=== PATIENT | female | born 1980 | race Caucasian/White ===

== ENCOUNTER 2018-09-02 13:26 | Observation (INO) | payer BC ==
[~2018-09-02 13:26] MED LIST: IOPAMIDOL (ISOVUE 370) 100 ML BTL IV ONE
--- NOTE | 2018-09-02 13:52 | EDPHY ---
H & P Time Seen by Provider: 09/02/18 13:39 HPI/ROS: HPI Abdominal pain. Elevated white blood cell count and abnormal CT scan. Sent from clinic. 38-year-old female by private vehicle with family member. This patient reports that yesterday at 4:30 p.m. She developed which she describes as periumbilical abdominal pain. Pain described as sharp, cramping and aching. She had 1 episode which she described as severe, it went away but then returned later that evening, this was severe enough that she felt she needed to call EMS. By the time EMS got there the pain had subsided somewhat. She did not come to the hospital last night. The pain has persisted since that time and she saw her primary care physician Dr. Zaria Reed at the [facility] earlier today. A CT scan of the abdomen and pelvis contrast enhanced was obtained. Her appendix was apparently not visualized. She did have an elevated white blood cell count. She was sent to the emergency department by Dr. Reed for further evaluation. She states that her last meal was yesterday at about 4:00 p.m.. She has not had anything to eat or drink since that time. Last bowel movement was yesterday morning. This was described as normal. No bloody or melenic stool. She denies any urinary complaints. No previous abdominal surgical history. She has not had diarrhea. Last menstrual period was about a month ago. ROS: Constitutional: No fever, no chills. No weakness. Eyes: No discharge. No changes in vision. ENT: No sore throat. No nasal congestion or rhinorrhea. Respiratory: No cough. No shortness of breath. Cardiac: No chest pain, no palpitations. Gastrointestinal: As above, no vomiting, no diarrhea. Genitourinary: No hematuria. No dysuria or increased frequency with urination. Musculoskeletal: No back pain. No neck pain. No myalgias or arthralgias. Skin: No rashes. Neurological: No headache. No focal weakness or altered sensation. Past medical history: IUD in place. No past medical history. Social history: Nonsmoker. No alcohol. Here with family member. Physical Exam: General Appearance: Alert, she appears uncomfortable but not in distress. This patient is responding to questions appropriately and in full sentences. This patient appears well-hydrated and well-nourished. Eyes: Pupils equal and round no pallor or injection. No lid edema, erythema or injection. ENT, Mouth: Mucous membranes are moist. The pharyngeal tissues are unremarkable. No edema or swelling. No asymmetry suggestive of abscess. No erythema or exudates. Respiratory: There are no retractions, lungs are clear to auscultation with good air movement bilaterally. Cardiovascular: Regular rate and rhythm. No murmur. Gastrointestinal: Abdomen is soft with vague and moderate periumbilical and midline infraumbilical as well as right lower quadrant tenderness on palpation, no masses, bowel sounds normal. No focal tenderness at McBurney's point. No Carlson sign. Neurological: Motor sensory function is grossly intact. Cranial nerves are normal. Gait is normal. Skin: Warm and dry, no rashes. Musculoskeletal: Neck is supple and nontender. Extremities are symmetrical. All joints range without pain or impingement. Psychiatric: No agitation. No depression. Database: EKG: Imaging: I discussed the results with Dr. Brent Frazier of her CT abdomen and pelvis which was obtained just prior to arrival. This is a contrast enhanced study, the base of the appendix is clearly visualized and there is no evidence of appendicitis. No associated inflammatory changes. There is a possible ileitis. She has a nonobstructive stone in her left kidney in ovarian cyst on the left side. Otherwise this study is unremarkable. Procedures: Emergency department course: Triage vital signs reviewed. She is mildly tachycardic, triage vital signs are otherwise normal. She declines antiemetics and pain medication at this time. I was informed by Dr. Frazier that Dr. Wily Anderson is to evaluate this patient in the emergency department. This was arranged by the PCP Dr. Zaria Reed. 2:15 p.m., patient is resting comfortably. Dr. Wily Anderson of the General surgery service is aware the patient is here will see the patient in the emergency department shortly. 2:30 p.m., the patient has been seen and evaluated by Dr. Wily Anderson. Her exam is concerning for appendicitis. His plan will be to take her to the OR shortly for management of acute appendicitis. The patient's remaining emergency department course under my care has been uneventful. Patient was admitted in stable condition to preop. Dr. Anderson has ordered Mefoxin IV to be given to the patient in the emergency department prior surgery. Differential Diagnosis: The differential diagnosis on this patient includes but is not limited to appendicitis, constipation, colitis, ovarian cyst. This represents a partial list of diagnoses considered. These considerations are based on history, physical exam, past history, reassessment and diagnostic testing. Smoking Status: Never smoked Constitutional: Initial Vital Signs Temperature (C) 37.3 C 09/02/18 13:29 Heart Rate 114 H 09/02/18 13:29 Respiratory Rate 17 09/02/18 13:29 Blood Pressure 122/75 H 09/02/18 13:29 O2 Sat (%) 98 09/02/18 13:29 O2 Delivery Mode Room Air Allergies/Adverse Reactions: No Known Allergies Allergy (Unverified 09/02/18 13:28) Home Medications: Medication Instructions Recorded Latanoprost 1 drop EACHEYE HS 09/02/18 Levonorgestrel [MIRENA] 1 each IY AD 09/02/18 Topiramate [Topamax 25MG (*)] 25 mg PO DAILY 09/02/18 Topiramate [Topamax 25MG (*)] 50 mg PO HS 09/02/18 Tretinoin Microspheres [Retin-A 1 anjelica TP DAILY 09/02/18 Micro] Amoxicillin/Clavulanate Pot 875 mg PO BID #10 tab 09/03/18 [Augmentin 875 MG TAB (*)] Ibuprofen [Motrin (*)] 600 mg PO Q8HRS #30 tab 09/03/18 Medical Decision Making - Data Points Medications Given: Discontinued Medications Bupivacaine HCl (Sensorcaine 0.25% Sdv) Confirm Administered Dose 30 ml .ROUTE .STK-MED ONE Stop: 09/02/18 14:58 Last Admin: 09/02/18 16:10 Dose: 17 ml Sodium Chloride (Ns) 1,000 mls @ 0 mls/hr IV EDNOW ONE; Wide Open PRN Reason: Protocol Stop: 09/02/18 13:54 Last Admin: 09/02/18 14:00 Dose: 1,000 mls Sodium Chloride (Ns) 1,000 mls @ 0 mls/hr IV EDNOW ONE; Wide Open PRN Reason: Protocol Stop: 09/02/18 13:54 Last Admin: 09/02/18 14:00 Dose: 1,000 mls Cefoxitin Sodium 2 gm/ Sodium (Chloride) 100 mls @ 200 mls/hr IV EDNOW ONE PRN Reason: Protocol Stop: 09/02/18 15:07 Last Admin: 09/02/18 15:45 Dose: 100 mls Lactated Ringer's (Lr) 1,000 mls @ 100 mls/hr IV CONT [facility] Stop: 03/01/19 16:59 Last Admin: 09/03/18 03:59 Dose: 1,000 mls Cefoxitin Sodium 1 gm/ Sodium (Chloride) 50 mls @ 200 mls/hr IV Q6H PABLO PRN Reason: Protocol Stop: 09/03/18 10:14 Last Admin: 09/03/18 10:02 Dose: 50 mls Ibuprofen (Motrin) 600 mg PO Q8HRS [facility] Stop: 03/01/19 21:59 Last Admin: 09/03/18 04:49 Dose: 600 mg Latanoprost (Xalatan 0.005%) 1 drops EACHEYE [facility] Stop: 03/01/19 20:59 Last Admin: 09/02/18 21:46 Dose: 1 drop Midazolam HCl (Versed) 2 mg IVP ONCE ONE Stop: 09/02/18 15:23 Last Admin: 09/02/18 15:35 Dose: 2 mg Miscellaneous Medication (Tretinoin Microspheres [Retin-A Micro]) 1 anjelica TP DAILY [facility] Stop: 03/02/19 08:59 Last Admin: 09/03/18 08:22 Dose: Not Given Topiramate (Topamax) 25 mg PO DAILY [facility] Stop: 03/02/19 08:59 Last Admin: 09/03/18 08:22 Dose: 25 mg Topiramate (Topamax) 50 mg PO [facility] Stop: 03/01/19 20:59 Last Admin: 09/02/18 21:43 Dose: 50 mg Departure - Departure Disposition: [facility] Acute Clinical Impression: Abdominal pain, Acute appendicitis Condition: Fair
[2018-09-02] MEDS ORDERED: NS 1,000 ML IV ONE ×2 (13:53)
[2018-09-02] MEDS ORDERED: cefOXitin SODIUM 2 GM in NS 100 ML IV ONE (14:38)
[2018-09-02] MEDS ORDERED: BUPIVACAINE 0.25% 30 ML SDV ONE (14:57)
--- NOTE | 2018-09-02 15:04 | PDCONSULT ---
Community Health Director Note: CC: abd pain HPI: 38 y/o female with one day hx abd pain, nausea/anorexia. She saw her PCP today and was referred for labs and CT. WBC is [address] equivocal. She feels the pain is getting worse. PMH: left knee ganglion NKDA Meds: Topamax, Lumigan tobacco: non-smoker EtOH: daily drinker SH: [employer] employee on [employer], here with friend FH: breast CA mother ROS: Mirena IUD, LMP 28 days, PE: T100 P 112 BP 125/75 R pleasant young woman in moderate distress HEENT: -icterus/adenopathy Lungs: CTA CVS: RRR w/out murmur Abd: soft, hypoactive bowel sounds, percussion tenderness RLQ, + Rovsing's, tender to palpation RLQ with guarding CT reviewed: poor visualization of appendix due to lack of visceral fat. Left ovarian cyst Imp: appendicitis/L adnexal cyst Rec: to OR for lap appendectomy we discussed surgery, risks and expected recovery informed consent was obtained Cefoxitin 2 gm IVPB ordered MARILU Anderson MD, FACS
[2018-09-02] MEDS ORDERED: MIDAZOLAM 2 MG/2 ML VIAL ONE (15:21)
[2018-09-02] MEDS ORDERED: MIDAZOLAM 2 MG/2 ML VIAL IVP ONE (15:22)
--- NOTE | 2018-09-02 15:22 | PDANEPAE ---
ANE History of Present Illness acute appendicitis ANE Past Medical History - Cardiovascular History Hx Hypertension: No Hx Arrhythmias: No Hx Chest Pain: No Hx Coronary Artery / Peripheral Vascular Disease: No Hx CHF / Valvular Disease: No Hx Palpitations: No - Pulmonary History Hx COPD: No Hx Asthma/Reactive Airway Disease: No Hx Recent Upper Respiratory Infection: No Hx Oxygen in Use at Home: No - Endocrine History Hx Diabetes: No Hypothyroid: No Hyperthyroid: No Obesity: no - Renal History Hx Renal Disorders: No - Liver History Hx Hepatic Disorders: No - Neurological & Psychiatric Hx Hx Neurological and Psychiatric Disorders: No - Cancer History Hx Cancer: No - Congenital Disorder History Hx Congenital Disorders: No - GI History GERD: no - Other Health History Other Health History: glaucoma. headaches - Chronic Pain History Chronic Pain: No - Surgical History Prior Surgeries: cyst removed from behind knee ANE Review of Systems Review of systems is: negative Review of Systems: - Exercise capacity Exercise capacity: >=4 METS ANE Patient History - Allergies Allergies/Adverse Reactions: No Known Allergies Allergy (Unverified 09/02/18 13:28) - Home Medications Home medications: home medication list seen and reviewed Home Medications: Lumigan 0.01% (*) 09/02/18 [Last Taken Unknown] MIRENA 09/02/18 [Last Taken Unknown] Retin-A Micro 09/02/18 [Last Taken Unknown] Topamax 09/02/18 [Last Taken Unknown] - NPO status NPO Since - Liquids (Date): 09/02/18 NPO Since - Liquids (Time): 11:00 NPO Since - Solids (Date): 09/01/18 - Smoking Hx Smoking Status: Never smoked ANE Labs/Vital Signs - Vital Signs Blood Pressure: 122/74 Heart Rate: 113 Respiratory Rate: 20 O2 Sat (%): 100 Height: 160.02 cm Weight: 49.895 kg ANE Physical Exam - Airway Neck exam: FROM Mallampati Score: Class 2 Mouth exam: normal dental/mouth exam - Pulmonary Pulmonary: no respiratory distress, clear to auscultation - Cardiovascular Cardiovascular: regular rate and rhythym, no murmur, rub, or gallop - ASA Status ASA Status: II, E ANE Anesthesia Plan Anesthesia Plan: general endotracheal anesthesia
[2018-09-02] MEDS ORDERED: PROPOFOL 200 MG/20 ML VIAL ONE (15:24)
[2018-09-02] MEDS ORDERED: fentaNYL 250 MCG/5 ML INJ ONE (15:24)
[2018-09-02] MEDS ORDERED: LIDOCAINE 2% 5 ML SDV ONE (15:25)
[2018-09-02] MEDS ORDERED: ROCURONIUM 50 MG/5 ML VIAL ONE (15:25)
[2018-09-02] MEDS ORDERED: PHENYLEPHRINE HCL 100 MCG/ML SYR ONE (15:46)
[2018-09-02] MEDS ORDERED: HYDROmorphONE/DILAUDID 2 MG/ML INJ IVP PRN (15:56)
[2018-09-02] MEDS ORDERED: NALOXONE HCL 0.4 MG/ML INJ IVP PRN (15:56)
[2018-09-02] MEDS ORDERED: PROMETHAZINE HCL 25 MG/ML INJ IVP PRN (15:56)
[2018-09-02] MEDS ORDERED: fentaNYL 100 MCG/2 ML INJ IVP PRN (15:56)
[2018-09-02] MEDS ORDERED: MEPERIDINE 25 MG/0.5 ML AMP IVP PRN (15:56)
[2018-09-02] MEDS ORDERED: ONDANSETRON 4 MG/2 ML VIAL ONE (16:07)
[2018-09-02] MEDS ORDERED: SUGAMMADEX SODIUM 200 MG/2 ML VIAL IVP ONE (16:07)
[2018-09-02] MEDS ORDERED: KETOROLAC 30 MG/1 ML SDV ONE (16:09)
--- NOTE | 2018-09-02 16:32 | POSTOPPROG ---
Post Op Note Date of Operation: 09/02/18 Surgeon: Wily Anderson (, FACS) Anesthesia: GET(General Endotracheal) Pre-op Diagnosis: appendicitis Post-op Diagnosis: ruptured right ovarian cyst Procedure: diagnostic laparoscopy/evacuation hemoperitoneum Findings: ruptured "chocolate" cyst right ovary Inf/Abcess present in the surg proc area at time of surgery?: No Specimen(s): none
[2018-09-02] MEDS ORDERED: HYDROmorphONE/DILAUDID 1 MG/ML INJ IVP PRN (16:34)
[2018-09-02] MEDS ORDERED: HYDROCODONE/APAP 5/325 TAB PO PRN (16:34)
[2018-09-02] MEDS ORDERED: ONDANSETRON 4 MG/2 ML VIAL IVP PRN (16:34)
[2018-09-02] MEDS ORDERED: METOCLOPRAMIDE 10 MG/2 ML VIAL IVP PRN (16:34)
[2018-09-02] MEDS ORDERED: ZOLPIDEM TARTRATE 5 MG TAB PO PRN (16:34)
[2018-09-02] MEDS ORDERED: NON-FORMULARY NEW DRUG (Levonorgestrel [Mirena] 1 EACH) IY SCH (16:45)
[2018-09-02] MEDS ORDERED: LR 1,000 ML IV SCH (17:00)
[2018-09-02] MEDS ORDERED: LATANOPROST 0.005% 2.5 ML OPHT DROPS EACHEYE SCH (21:00)
[2018-09-02] MEDS ORDERED: TOPIRAMATE 25 MG TAB PO SCH (21:00)
[2018-09-02] MEDS: cefOXitin SODIUM 1 GM in NS 50 ML IV SCH (21:39)
[2018-09-02] MEDS: IBUPROFEN 600 MG TAB PO SCH (21:43)
--- NOTE | 2018-09-03 04:39 | GOP ---
DATE OF OPERATION: 09/02/2018 SURGEON: Wily Anderson MD, [facility] ANESTHESIOLOGIST: Rios Moore MD. PREOPERATIVE DIAGNOSIS: Acute appendicitis. POSTOPERATIVE DIAGNOSIS: Ruptured right ovarian cyst with hemoperitoneum. PROCEDURE PERFORMED: Diagnostic laparoscopy and evacuation of hemoperitoneum. FINDINGS: Ruptured right ovarian cyst with hemoperitoneum, probable chocolate cyst. Incidental right inguinal hernia. Normal-appearing appendix. Left ovarian cyst of indeterminate etiology. ESTIMATED BLOOD LOSS: 10 cc (150 cc of clot evacuated). DESCRIPTION OF PROCEDURE: After informed consent was obtained, the patient was brought to the operating room and placed under general anesthesia. She had presented with a 24-hour history of abdominal pain, tachycardia, low-grade fevers, and leukocytosis. Findings on CT were equivocal with the appendix being nonvisualized. The patient had a moderate-sized left adnexal cyst. She had an indwelling IUD. Before proceeding, a time-out and identification of the patient were performed. 0.25% Marcaine was used to infiltrate all incision sites. A longitudinal incision was made below the umbilicus and carried through the skin and subcutaneous tissues. Ventral traction was applied to the abdominal wall, and a Veress needle was carefully placed into the peritoneal cavity. Position was confirmed by saline infusion. A pneumoperitoneum was established with CO2 gas to a pressure of 15 mmHg. The Veress needle was withdrawn and replaced with a 5 mm bladeless trocar. A 30-degree scope was introduced, and the peritoneal cavity was visualized. Old blood was encountered at the pelvic brim. The patient's bladder was rather full, and there was no sign of active bleeding. A second 5 mm port was placed in the suprapubic midline under direct visualization. This allowed introduction of atraumatic grasping forceps, and manipulating the right adnexa revealed the patient's ovary as well as the remnants of the ruptured hemorrhagic (chocolate) cyst. Suction-bookstore clerk was used to evacuated the remaining blood clots. There was no active bleeding noted. Incidentally noted was a right inguinal hernia, and the left ovarian cyst was visualized and photographed. The appendix appeared normal other than some adjacent blood from the ruptured cyst. After the blood was evacuated and irrigated and hemostasis appeared secure, the pneumoperitoneum was evacuated. The 2 port sites were closed with interrupted 4 -0 Monocryl suture in a subcuticular fashion. Topical Dermabond was applied. The patient was returned extubated to the recovery room in satisfactory condition. Needle, sponge, and instrument count was correct. Copy requested to: Dr. Reed /[id number]/MODL MTDD
[2018-09-03] MEDS: cefOXitin SODIUM 1 GM in NS 50 ML IV SCH ×2 (04:48→10:02)
[2018-09-03] MEDS: IBUPROFEN 600 MG TAB PO SCH (04:49)
[2018-09-03 05:44] LABS: PLATELET COUNT 160 10^3/uL (150-400)
[2018-09-03 08:12] VITALS: BP 87/53
[2018-09-03] MEDS ORDERED: TRETINOIN TP SCH (09:00)
[2018-09-03] MEDS ORDERED: TOPIRAMATE 25 MG TAB PO SCH (09:00)
[2018-09-03] MEDS ORDERED: AMOXICILLIN/CLAVULANATE POT 875/125 MG TAB PO SCH (10:30)
--- NOTE | 2018-09-03 10:43 | PDDCSUM ---
Discharge Summary Discharge Summary: #[id number] Discharge summary dictated Rossana Anderson MD, FACS
--- NOTE | 2018-09-03 10:52 | ASMTLACE ---
LACE Length of stay for Answers: Less than 1 day current admission # of Emergency department Answers: 1-2 visits in the last 6 months Score: 1 Date Signed: 09/03/2018 10:51 AM Electronically Signed By:Marycarmen Hatfield RN
--- NOTE | 2018-09-03 12:02 | GDS ---
DISCHARGE DIAGNOSES: 1. Abdominal pain, fever, and leukocytosis. 2. Ruptured hemorrhagic right ovarian cyst. 3. Possible pelvic inflammatory disease. PROCEDURE PERFORMED: Diagnostic laparoscopy and evacuation of hemoperitoneum. HOSPITAL COURSE: For details of admission history and physical, please see dictated summary. Briefl y, the patient is a 38-year-old female who presented with a 1-day history of abdominal pain, fever an d leukocytosis. She was seen at [facility] by Dr. Zaria Reed and referred for a CT o f the abdomen, which was nondiagnostic, though she did have some free fluid in the pelvis. The appen keila was not visualized and this was attributed to her thin body habitus and absence of visceral fat. On clinical exam, she had findings worrisome for localized peritonitis and was brought to the operat ing room for diagnostic laparoscopy for possible appendicitis. She did have a left adnexal cyst that was seen on the CT scan and indwelling IUD. At the time of surgery, she was found to have a ruptured right ovarian cyst, typical of a chocolate c yst, and a normal-appearing appendix. The left ovarian cyst was noted and photographed. The hemoper itoneum was evacuated. Postoperatively, the patient remained afebrile. She received perioperative cefoxitin and I placed he r on Augmentin 875 mg p.o. b.i.d. for an additional 5 days because of the lack of understanding where her fever and leukocytosis came from. Her white blood cell count had declined to near normal on the morning after surgery and she had no fevers. Patient will follow up in my office in the upcoming week and with [employer] to remove her IUD, which she requests to be done within the next week or so. The patient was given instructions in diet and acti vity advancement. Her incisions were healing well without sign of infection at time of discharge, an d she required no narcotics after surgery. DISCHARGE MEDICATIONS: Ibuprofen 600 mg p.o. q.6 hours p.r.n. pain, Augmentin 875 mg p.o. b.i.d. for 5 days, and she will resume her previous medicines, including Topamax, tretinoin, and latanoprost ey edrops. /[id number]/MODL
== END 2018-09-03 12:33 | disposition home or self-care (01) ==
LOC: F1N 17:23 → EDSTATUS 18:00
PROVIDERS: ADMIT Surgery; ATTEND Surgery
PROC: 0W9G4ZZ Drainage of Peritoneal Cavity, Percutaneous Endoscopic Approach (ICD-10-PCS; principal; 2018-09-02 15:30)
DX: N80.1 Endometriosis of ovary (principal); N83.202 Unspecified ovarian cyst, left side; H40.9 Unspecified glaucoma
CPT/HCPCS: 49322; 74177; 96361; 96374; 96376; 99285; G0378; J0694; J1885; J2250; J2370; J2405; J2704; J3010; Q9967